=== PATIENT | female | born 1985 | race Caucasian/White ===

== ENCOUNTER 2019-06-29 18:00 | Outpatient (CLI) | payer SELFPAY ==
[~2019-06-29] VITALS: Ht 144.8 cm; Wt 87.1 kg
[~2019-06-29 18:00] MED LIST: PREN-93 PO
[2019-06-29 19:49] VITALS: BP 102/57; PULSE 67; RESP 18; Ht 144.8 cm; Wt 87.1 kg
--- NOTE | 2019-06-29 21:43 | TRIAGE ---
OB Triage Datetime Report Generated by CPN: 06/29/2019 21:43 Datetime: 06/29/2019 19:49 Stage of : OB Triage Assessment Type: Triage Maternal Assessment Level of Consciousness: Keenly Alert, Responsive DTR's/Clonus: DTRs 2+; No Clonus Headache: Denies Blurred Vision: No Respiratory Effort: Unlabored; Regular Rhythm; Equal Expansion Breath Sounds, Left: Clear and Equal Breath Sounds, Right: Clear and Equal Nausea/Vomiting: Denies RUQ Epigastric Pain: Denies Lower Extremities Edema: None Degree: None Upper Extremities Edema: None Degree: None Facial Edema: None Temperature Route: Oral Fall Risk Assessment History of Falling: (0) No Secondary Diagnosis: (0) No Ambulatory Aid: (0) Bedrest/Nurse Assist IV Therapy: (0) No Gait: (0) Normal/Bedrest/Immobile Mental Status: (0) Oriented to Own Ability Fall Score: 0 Fall Risk Score Definition: No Risk: No action required Pain Assessment Pain Scale: 0 Pain Presence: None/Denies Pain Type: N/A Datetime: 06/29/2019 19:41 Time of Arrival: 06/29/2019 17:45 EGA: 36.4 Arrived By: Ambulatory Arrived From: Office Chief Complaint: ITCHING Movement: Present Contractions: Denies/Absent Rupture of Membranes: Denies Vaginal Bleeding: None Vaginal Discharge: Denies Recent Sexual Intercouse: Denies Abdominal Trauma: Not Applicable Patient Complaints: Other Time Provider Notified: 06/29/2019 19:42 Provider Notified: NIHARIKA Initial Plan: WRITTEN ORDERS FOR BPP _ CMP RECEIVED
--- NOTE | 2019-06-29 22:01 | PN ---
Triage Information Date/Time 06/29/192150 Reason for visit: generalized body itching Weeks of Gestation 36w4d /Para Diabetes: none Hypertention: none Additional information serum bile acid drawn today at her OB's office Objective Vital Signs Date Temp Pulse Resp B/P (MAP) Pulse Ox O2 O2 Flow FiO2 Time Delivery Rate 06/29/19 97.7 67 18 102/57 Room Air 19:49 (72) Heart Rate: 130's Heart Rate Comments CAT I Results/Medications Result Diagram: 06/29/191999 Results 24 hrs Laboratory Tests Test 06/29/19 20:00 Sodium Level 133 L Potassium Level 4.4 Chloride Level 107 Carbon Dioxide Level 23 Anion Gap 3 L Blood Urea Nitrogen 12 Creatinine 0.61 Est Glomerular Filtrat Rate mL/min > 60 Glucose Level 85 Calcium Level 8.9 Total Bilirubin 0.3 Direct Bilirubin 0.00 Indirect Bilirubin 0.3 Aspartate Amino Transf (AST/SGOT) 28 Alanine Aminotransferase (ALT/SGPT) 17 Alkaline Phosphatase 201 H Total Protein 6.8 Albumin 3.2 L Globulin 3.60 H Albumin/Globulin Ratio 0.88 Imaging Results BPp 06/29 DIANA 19.2 Disposition: Discharge Assessment/Plan A IUP 36w4d R/O cholestasis P discharge home with routine labor instructions RTH wednesday for antepartum test APRYL WYATT MD Jun 29, 2019 22:01
== END 2019-06-29 21:16 | disposition home or self-care (01) ==
LOC: OBT 18:00 → L-D 18:01 → OBT 21:16
PROVIDERS: ATTEND Obstetrics & Gynecology
DX: O26.893 Other specified pregnancy related conditions, third trimester (principal); L29.9 Pruritus, unspecified; Z3A.36 36 weeks gestation of pregnancy
CPT/HCPCS: 76818; 80053; G0463

== ENCOUNTER 2019-07-02 14:58 | Outpatient (CLI) | payer MEDICAID ==
[~2019-07-02] VITALS: Ht 144.8 cm; Wt 86.2 kg
[2019-07-02 15:03] VITALS: BP 99/56; PULSE 66; RESP 18; Ht 144.8 cm; Wt 86.2 kg
--- NOTE | 2019-07-02 16:56 | PN ---
Triage Information Date/Time Reason for visit: Suspected Cholsetasis for NST BPp Weeks of Gestation 37+ /Para n/a Diabetes: none Hypertention: none Objective Vital Signs Date Temp Pulse Resp B/P (MAP) Pulse Ox O2 O2 Flow FiO2 Time Delivery Rate 07/02/19 98.1 66 18 99/56 (70) 15:03 Heart Rate: 140's Contractions: None Results/Medications Result Diagram: 07/02/19 1625 Results 24 hrs Laboratory Tests Test 07/02/19 16:25 Sodium Level 134 L Potassium Level 3.9 Chloride Level 107 Carbon Dioxide Level 21 Anion Gap 6 Blood Urea Nitrogen 14 Creatinine 0.65 Est Glomerular Filtrat Rate mL/min > 60 Glucose Level 100 Calcium Level 9.0 Total Bilirubin 0.3 Direct Bilirubin 0.00 Indirect Bilirubin 0.3 Aspartate Amino Transf (AST/SGOT) 23 Alanine Aminotransferase (ALT/SGPT) 12 L Alkaline Phosphatase 176 H Total Protein 6.7 Albumin 3.1 L Globulin 3.60 H Albumin/Globulin Ratio 0.86 Disposition: Discharge Assessment/Plan BPP 08/31 Labs reviewed her provider wants to let Repeat NST BPP in 2 days and He also will follow up on Bile acids Precautions discussed Questions answered Follow up with provider HIREN OLIVEROS M.D. Jul 02, 2019 16:56
--- NOTE | 2019-07-02 16:56 | TRIAGE ---
OB Triage Datetime Report Generated by CPN: 07/02/2019 16:55 Datetime: 07/02/2019 15:48 Labor Evaluation Frequency: occ Monitor Mode: External Duration (sec)2399: 60 Quality: Mild Pattern: Normal: <= 5 Contractions in 10 Minutes Resting Tone Parrish: Relaxed Heart Rate FHR Baseline Rate: 135 Monitor Mode: External US Variability: Moderate 6-25 bpm Accelerations: 15X15 Decelerations: None Category: Category I Comments: reactive nst Pain Assessment Pain Presence: None/Denies Pain Type: N/A Datetime: 07/02/2019 15:05 Time of Arrival: 07/02/2019 14:45 EGA: 37.0 Arrived By: Ambulatory Arrived From: Home Chief Complaint: Follow up for nst, bpp Movement: Present Contractions: Denies/Absent Rupture of Membranes: Denies Vaginal Bleeding: None Vaginal Discharge: Denies Recent Sexual Intercouse: Denies Abdominal Trauma: Not Applicable Patient Complaints: None Time Provider Notified: 07/02/2019 16:08 Provider Notified: Initial Plan: nst, bpp Datetime: 06/29/2019 21:04 Labor Evaluation Frequency: 0 Monitor Mode: External Pattern: Normal: <= 5 Contractions in 10 Minutes Heart Rate FHR Baseline Rate: 130 Monitor Mode: External US Variability: Moderate 6-25 bpm Accelerations: 15X15 Decelerations: Variable Category: Category II Datetime: 06/29/2019 19:49 Fall Risk Assessment Fall Score: 0 Fall Risk Score Definition: No Risk: No action required Datetime: 06/29/2019 19:41 EGA: 36.4
== END 2019-07-02 17:00 | disposition home or self-care (01) ==
LOC: OBT 14:58 → L-D 14:58 → OBT 17:00
PROVIDERS: ATTEND Obstetrics & Gynecology
DX: O26.613 Liver and biliary tract disorders in pregnancy, third trimester (principal); K83.1 Obstruction of bile duct; Z3A.37 37 weeks gestation of pregnancy
CPT/HCPCS: 76818; 80053; Z7500; G0463